=== PATIENT | male | born 1950 | race Caucasian/White ===

== ENCOUNTER 2022-03-29 07:54 | Emergency (ER) | payer OTHER ==
[~2022-03-29] VITALS: Ht 175.3 cm; Wt 81.6 kg
--- NOTE | 2022-03-29 08:00 | NUR ---
PT BIB AWAKE AND ALERT AOX4. NO SOB OR DISTRESS. PT C/O PAIN TO L HIP AND LEG. PT DENIES TRAUMA. PT HAS HX OS BACK PAIN, SCIATICA, AND SCOLOSIS. PT STATES PAIN 8/10, WHICH STARTED YESTERDAY AT 1400.
--- NOTE | 2022-03-29 08:05 | NUR ---
MD DR REYNOLDS AT BEDSIDE
[2022-03-29 08:09] VITALS: BP_SYST 138
[2022-03-29] MEDS ORDERED: MORPHINE 4 MG INJ. 4 MG/ML VIAL IM ONE (08:30)
[2022-03-29] MEDS ORDERED: KETOROLAC TROMETHAMINE 60 MG/2 ML VIAL IM ONE (08:30)
[2022-03-29] MEDS ORDERED: IBUP-1971 PO (08:33)
[2022-03-29] MEDS ORDERED: HYDR-3917 PO (08:33)
[2022-03-29 08:47] VITALS: BP_SYST 135
--- NOTE | 2022-03-29 08:51 | NUR ---
Patient given written and verbal discharge instructions and verbalizes understanding. ER MD DR REYNOLDS discussed with patient the results and treatment provided. Patient in stable condition. ID arm band removed. Rx of NORCO AND MOTRIN given. Patient educated on pain management and to follow up with PMD. Pain Scale 8/10. Opportunity for questions provided and answered. Medication side effect fact sheet provided.
[2022-03-30] MEDS ORDERED: BACL20TA PO (16:11)
[2022-03-30] MEDS ORDERED: DICL75TA5 PO (16:11)
== END 2022-03-29 08:47 | disposition home or self-care (01) ==
LOC: SED 07:54
DX: M54.50 Low back pain, unspecified (principal); I10 Essential (primary) hypertension; Z79.899 Other long term (current) drug therapy
CPT/HCPCS: 99283; 96372; J2270

== ENCOUNTER 2022-03-30 14:17 | Emergency (ER) | payer OTHER ==
[~2022-03-30] VITALS: Ht 175.3 cm; Wt 88.5 kg
[~2022-03-30 14:17] MED LIST: HYDR-3917 PO; IBUP-1971 PO
[2022-03-30 14:47] VITALS: BP_SYST 148
[2022-03-30] MEDS ORDERED: LORazepam 2 MG/ML VIAL IM ONE (15:30)
[2022-03-30] MEDS ORDERED: KETOROLAC TROMETHAMINE 30 MG VIAL IM ONE (15:30)
[2022-03-30] MEDS ORDERED: DICL75TA5 PO (16:11)
[2022-03-30] MEDS ORDERED: BACL20TA PO (16:11)
[2022-03-30 19:57] VITALS: BP_SYST 148
== END 2022-03-30 19:57 | disposition home or self-care (01) ==
LOC: SED 14:17
DX: M54.32 Sciatica, left side (principal); M54.50 Low back pain, unspecified; I10 Essential (primary) hypertension; Z79.899 Other long term (current) drug therapy
CPT/HCPCS: 99284; 96372; J1885; J2060